=== PATIENT | male | born 2000 | race Caucasian/White ===

== ENCOUNTER 2021-04-20 09:24 | Emergency (ER) | payer OTHER, SELFPAY ==
--- NOTE | ~2021-04-20 | XR_ITS ---
EXAMINATION: XR FINGER, RIGHT CLINICAL INFORMATION: Right thumb laceration. COMPARISON: None. TECHNIQUE: Three views of the right thumb. XR/XR finger RT min 2V FINDINGS/IMPRESSION: Soft tissue thickening and laceration within the first digit without evidence of acute fractures or malalignment. No unexpected radiopaque foreign bodies.
[2021-04-20 09:51] VITALS: BP 156/102; PULSE 78; RESP 16; TEMP 36.2; O2SAT 100; BMI 36.4
--- NOTE | 2021-04-20 10:02 | ED.WOUNDLAC ---
HPI - Wound/Laceration General Chief Complaint: Wound/Laceration Stated Complaint: thumb lac Time Seen by Provider: 04/20/21 09:55 Source: patient Mode of arrival: ambulatory Limitations: no limitations History of Present Illness HPI narrative: 21-year-old male presents to the ER with a laceration to his right thumb that he sustained just prior to arrival when he accidentally cut with a razor blade at work. He is able to fully bend and extend the thumb. He denies any numbness or tingling. He applied a Band-Aid after he cleaned it with soap and water at home and there is no active bleeding on arrival. Onset (ago): minute(s) Extremity Location: right: hand (thumb) Place: work Context: accidental Associated symptoms: pain Treatments prior to arrival: bandage Related Data Allergies Allergy/AdvReac Type Severity Reaction Status Date / Time No Known Allergies Allergy Verified 04/20/21 09:50 Review of Systems Review of Systems: Constitutional: No Fever Musculoskeletal: + joint pain, No Myalgias Skin: + Skin Lesions, No rash Neuro: No Weakness, No Numbness Psych: +Anxiety/Panic Heme/Lymph: No Bruising, No Lymphadenopathy PMFSH Past Medical History Medical History (Updated 04/20/21 @ 10:21 by MABEL Pennington) Asthma HTN (hypertension) Social History Social History Advance Directives: No Advance Directives Information Provided: No Physical Exam Vital Signs: Vital Signs: Last Vital Signs Temp 97.2 F 04/20/21 09:51 Pulse 78 04/20/21 09:51 Resp 16 04/20/21 09:51 BP 156/102 H 04/20/21 09:51 Pulse Ox 100 04/20/21 09:51 BMI result Body Mass Index 36.4 Appearance: Alert. Oriented X3. No acute distress. HEENT: normal inspection CVS: Normal heart rate and rhythm. Pulses normal. Respiratory: No respiratory distress. Skin: Skin warm and dry. Normal skin color. Normal skin turgor. No rashes. Extremities: Right dorsal thumb with a very superficial laceration distal to the IP joint. No nail involvement. Bleeding normal flexion and and extension of the thumb. Neurovascularly intact distally. Neuro: Oriented X 3. No motor deficit. No sensory deficit. Course Course Course Narrative: 21-year-old male presenting to the ER with a superficial laceration to the dorsal aspect of his right thumb. He has full range of motion with no active bleeding on arrival. Wound is very superficial and does not need sutures for closure. X-ray negative for bony involvement. Wound was closed with skin glue and Steri-Strips with good effect. Dressing applied. Wound care discussed. Stable for discharge home. Tdap given. Procedures Laceration Laceration 1: Site: hand Side (If applicable): right Size (cm): 2 Description: linear and flap Depth: simple, single layer Pre-repair: wound explored, irrigated extensively and deep structures intact Skin layer closed with: other (Steri-Strips and skin glue) Critical Care Time Critical Care Time Critical Care Time: No Discharge Plan Discharge Clinical Impression: Laceration Patient Disposition: Home, Self-Care Instructions: Finger Laceration (ED) Additional Instructions: Your x-ray was normal. Tetanus shot was given which is good for 5 years. Steri-Strips and skin glue were used to closure wound today. These will come off on their own. Do not peel them off. Do not get wet for 24 hours, after that you can briefly wash with soap and water then pat dry. Use bacitracin 2x per day. Keep wound clean and covered. Do not submerge in water, no swimming. If you develop signs of infection including increased pain, swelling, redness or drainage of pus come back to the ER for further evaluation. Referrals: [facility] [Provider Group] - 2 days (Follow-up finger lac) Stand Alone Forms: Work/School Release
[2021-04-20] MEDS: Diphth,Pertus(ACell),Tet Adult 0.5 ML SYRINGE IM (10:23)
[2021-04-20 10:27] VITALS: BP 151/88
== END 2021-04-20 10:31 | disposition home or self-care (01) ==
PROVIDERS: Emergency Provider Emergency Medicine; PCP Pediatrics
DX: S61.011A Laceration without foreign body of right thumb without damage to nail, initial encounter (principal); S60.511A Abrasion of right hand, initial encounter; W26.9XXA Contact with unspecified sharp object(s), initial encounter; Y93.9 Activity, unspecified; Y92.9 Unspecified place or not applicable; Y99.0 Civilian activity done for income or pay
CPT/HCPCS: 12001; 73140; 90471; 90715; 99283; 99284